=== PATIENT | male | born 1975 | race Caucasian/White ===

== ENCOUNTER 2016-05-26 23:20 | Emergency (ER) | payer OTHER ==
[~2016-05-26] VITALS: Ht 165.1 cm; Wt 68.0 kg
[~2016-05-26 23:20] MED LIST: IBUPROFEN800 M1 PO; PERCOCET 5-3251 EACH PO
[2016-05-26 23:26] VITALS: BP 151/105
--- NOTE | 2016-05-26 23:27 | ED THROAT/DENTAL COMPLAINT ---
History of Present Illness General Chief Complaint: Sore Throat, Dental Pain Stated Complaint: DENTAL PAIN Source: patient, old records Exam Limitations: no limitations Vital Signs & Intake/Output Vital Signs & Intake/Output Vital Signs Date Time Temp Pulse Resp B/P Pulse O2 O2 Flow FiO2 Ox Delivery Rate 05/26 2326 96.2 88 18 151/105 99 Room Air ED Intake and Output 05/27 0000 05/26 1200 Intake Total 30 Output Total Balance 30 Intake, Oral 30 Patient 150 lb Weight Allergies Coded Allergies: No Known Allergies (01/31/16) Reconcile Medications Amoxicillin/Potassium Clav (Augmentin 875-125 Tablet) 875 MG-125 MG TABLET 1 TAB PO BID dental Ibuprofen 800 MG TABLET 1 TAB PO TID pain Ibuprofen 800 MG TABLET 1 TAB PO Q8H PRN pain Oxycodone HCl/Acetaminophen (Percocet 5-325 MG Tablet) 5 MG-325 MG TABLET 1 TAB PO BID pain Oxycodone HCl/Acetaminophen (Percocet 5-325 MG Tablet) 1 EACH TABLET 1 TAB PO Q6H PRN PAIN Triage Nurses Notes Reviewed? yes Onset: Abrupt Duration: day(s):, constant, getting worse Timing: recent history Injury Environment: home Severity: moderate, severe Severity Numbers: 9 Modifying Factors: Worsens With: eating. Associated Symptoms: denies HPI: 40-year-old male presents complaining of right lower dental pain for the past 2 days. He's been seen in the past for similar symptoms after he cracked his tooth however never sought care with a dentist. Patient states that today he's had a bad taste in his mouth and worsening pain with palpation and chewing on that side he denies sore throat however reports to positive congestion and rhinorrhea and generalized bodyaches. No fever no chills no cough no chest pain shortness of breath abdominal pain. He is not taken anything for his symptoms. (BRANDON BUCKNER) Past History Travel History Traveled to [place] past 21 day No Medical History Any Pertinent Medical History? see below for history Neurological: NONE EENT: NONE Cardiovascular: hypertension Respiratory: NONE Gastrointestinal: NONE Hepatic: NONE Renal: NONE Musculoskeletal: NONE Psychiatric: NONE Endocrine: NONE Surgical History Surgical History: non-contributory Psychosocial History What is your primary language Macedonian Family History Hx Contributory? No (BRANDON BUCKNER) Review of Systems Review of Systems Constitutional: Reports: see HPI. All Other Systems: Reviewed and Negative Comments Review of systems: See HPI, All other systems negative. Constitutional, no chills no fever, no malaise HEENT: No visual changes no sore throat no congestion Cardiovascular: No chest pain , no palpitation , Skin, no jaundice no rashes, no change in skin Respiratory: No dyspnea no cough no sputum GI: No nausea no vomiting, no diarrhea : No dysuria Muscle skeletal: No joint pain, no back pain, no neck pain, Neurologic: No numbness no headache Psych: No stress Heme/endocrine: No bruising no bleeding Immunology: No lymphadenopathy (BRANDON BUCKNER) Physical Exam Physical Exam General Appearance: well developed/nourished, no apparent distress, alert, awake , comfortable Mouth/Throat: pharynx normal, dental tenderness Comments: Well-developed well-nourished patient in no apparent distress. Head/Face: Atraumatic, no maxillary/frontal sinus tenderness, no facial swelling Eyes: PERRL, EOMI, no conjunctival injection Ear:External auditory canals clear Nose: atraumatic.Normal inspection: No bleeding Throat: Moist mucous membranes.Pharynx normal. No pharyngeal erythema/exudate seen. No stridor/drooling or assymetry. No swelling or edema. Neck: Supple, no lymphadenopathy, FROM Back: FROM, Nontender Cardiovascular: Regular rate and rhythms no murmurs rubs Respiratory:No respiratory distress. Patient speaking in full complete sentences. Breath sounds clear to auscultation bilaterally: NO W/R/R Extremities: full range of motion Neuro: Alert and oriented x3 Skin: Warm & dry;No appreciable rash on exposed skin Psych: Mood affect normal, normal memory normal judgment. Core Measures ACS in differential dx? No Severe Sepsis Present: No Septic Shock Present: No (BRANDON BUCKNER) Progress Differential Diagnosis: carious tooth, odontogenic abscess, darlene-tonsillar abscess, stomatitis/gingivitis, strep pharyngitis, tooth fracture Plan of Care: Current Medications Sig/Kai Start time Last Medication Dose Stop Time Status Admin Amoxicillin/ 500 MG ONCE ONE 05/26 2344 UNVr Clavulanate Potassium 05/26 2345 (Augmentin) Oxycodone/ 1 TAB ONCE ONE 05/26 2344 UNVr Acetaminophen 05/26 2345 (Percocet) Advise follow-up with dentist prescriptions for ibuprofen and Percocet provided (BRANDON BUCKNER) Departure Departure Time of Disposition: 2333 Disposition: HOME OR SELF CARE Condition: Stable Clinical Impression Primary Impression: Pain, dental Referrals: PONCHO BAH APRN (PCP/Family) Additional Instructions: Follow-up with your dentist this week. Augmentin ibuprofen and Percocet as directed. Follow-up with dental clinic list provided you were prescribed a narcotic use caution as this medication is highly addictive and will make you drowsy use for breakthrough pain only. No driving, drinking alcohol or operating machinary when taking. These prescriptions were sent to [facility] Departure Forms: Customer Survey General Discharge Information Prescriptions: Current Visit Scripts Amoxicillin/Potassium Clav (Augmentin 875-125 Tablet) 1 TAB PO BID #14 TAB Ibuprofen 1 TAB PO TID #30 TAB Oxycodone HCl/Acetaminophen (Percocet 5-325 MG Tablet) 1 TAB PO BID #8 TAB (BRANDON BUCKNER) PA/FLEET SALES MANAGER Co-Sign Statement Statement: ED Attending supervision documentation- [] I saw and evaluated the patient. I have also reviewed all the pertinent lab results and diagnostic results. I agree with the findings and the plan of care as documented in the PA's/FLEET SALES MANAGER's documentation. [x] I have reviewed the ED Record and agree with the PA's/FLEET SALES MANAGER's documentation. [] Additions or exceptions (if any) to the PAs/FLEET SALES MANAGER's note and plan are summarized below: [] (PRAVEEN PHILLIPS,RAYNA Banuelos)
[2016-05-26] MEDS ORDERED: AUGMENTIN 875-1 EACH PO (23:33)
[2016-05-26] MEDS ORDERED: IBUPROFEN800 M1 PO (23:33)
[2016-05-26] MEDS ORDERED: PERCOCET 5-3251 EACH PO (23:33)
== END 2016-05-26 23:47 ==
LOC: ERH 23:20
DX: K08.89 Other specified disorders of teeth and supporting structures (principal)
CPT/HCPCS: J3490

== ENCOUNTER 2016-06-12 20:07 | Emergency (ER) | payer OTHER ==
[~2016-06-12 20:07] MED LIST changes: +AUGMENTIN 875-1 EACH PO
[2016-06-12 20:30] VITALS: BP 152/106
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
[2016-06-12] MEDS ORDERED: HYDROCODON-ACE1 EAC2 PO (21:10)
[2016-06-12] MEDS ORDERED: AMOXICILLIN500 M3 PO (21:10)
== END 2016-06-12 21:33 ==
LOC: ERH 20:07
DX: K04.7 Periapical abscess without sinus (principal)

== ENCOUNTER 2016-10-29 16:20 | Emergency (ER) | payer OTHER ==
[~2016-10-29] VITALS: Ht 165.1 cm; Wt 70.3 kg
[~2016-10-29 16:20] MED LIST changes: +AMOXICILLIN500 M3 PO; +HYDROCODON-ACE1 EAC2 PO
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
--- NOTE | 2016-10-29 19:35 | RADIOLOGY REPORT ---
EXAMINATION: LEFT SHOULDER AND CLAVICLE. CLINICAL INFORMATION: Decreased range of motion. COMPARISON: None TECHNIQUE: 3 views of the shoulder, 2 views of the left clavicle. FINDINGS: Bone mineral density is maintained without evidence of fracture or dislocation. No focal osseous lesions are seen. Joint space is maintained without productive or erosive changes. IMPRESSION: Unremarkable examinations.
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
[2016-10-29] MEDS ORDERED: OXYCODONE-ACET1 EACH PO (20:24)
[2016-10-29] MEDS ORDERED: IBUPROFEN600 M1 PO (20:24)
[2016-10-29] MEDS ORDERED: AMLODIPINE BESYL5 M1 PO (20:24)
[2016-10-29] MEDS ORDERED: CYCLOBENZAPRINE10 M1 PO (20:24)
[2016-10-29 20:50] LABS: ABSOLUTE BASOPHIL COUNT 0 /CUMM (0.0-0.2); ABSOLUTE EOSINOPHIL COUNT 0.1 /CUMM (0.0-0.7); ABSOLUTE GRANULOCYTE CT 4.5 /CUMM (1.4-6.5); ABSOLUTE MONOCYTE COUNT 0.6 /CUMM (0.10-0.60); BASOPHIL % 0.4 % (0.0-2.0); EOSINOPHIL % 1.2 % (0-5); GRANULOCYTE % 72.9 % (42.2-75.2); HEMATOCRIT 41.7 % (42-52); MEAN CORPUSCULAR HGB 26.4 PG (27.0-31.0); MEAN CORPUSCULAR HGB CONC 32.8 G/DL (33.0-37.0); MEAN CORPUSCULAR VOLUME 80.4 FL (80.0-94.0); MEAN PLATELET VOLUME 8.4 FL (7.4-10.4); PLATELET COUNT 203 /CUMM (130-400); RBC DISTRIBUTION WIDTH 14.5 % (11.5-14.5); RED BLOOD CELL CT 5.18 /CUMM (4.70-6.10); WHITE BLOOD CELL COUNT 6.1 /CUMM (4.8-10.8)
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
[2016-10-29 22:39] VITALS: BP 141/83
== END 2016-10-29 23:55 | disposition left against medical advice (07) ==
LOC: ERH 16:20
PROVIDERS: Internal Medicine
DX: S22.32XA Fracture of one rib, left side, initial encounter for closed fracture (principal); J98.11 Atelectasis; I10 Essential (primary) hypertension; R51 Headache; R11.2 Nausea with vomiting, unspecified; R17 Unspecified jaundice; Y04.0XXD Assault by unarmed brawl or fight, subsequent encounter
CPT/HCPCS: 73000-LT; 73030-LT; 74177; 96374

== ENCOUNTER 2016-11-06 04:33 | Emergency (ER) | payer OTHER ==
[~2016-11-06] VITALS: Ht 165.1 cm; Wt 68.0 kg
[~2016-11-06 04:33] MED LIST changes: +AMLODIPINE BESYL5 M1 PO; +CYCLOBENZAPRINE10 M1 PO; +IBUPROFEN600 M1 PO; +OXYCODONE-ACET1 EACH PO
[2016-11-06 04:59] VITALS: BP 142/92
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
[2016-11-06] MEDS ORDERED: PERCOCET 5-3251 EACH PO (05:11)
== END 2016-11-06 05:26 ==
LOC: ERH 04:33
DX: S02.5XXA Fracture of tooth (traumatic), initial encounter for closed fracture (principal); X58.XXXA Exposure to other specified factors, initial encounter